=== PATIENT | female | born 1990 | race American Indian/Alaskan Native ===

== ENCOUNTER 2019-04-11 20:09 | Emergency (ER) | payer SELFPAY ==
--- NOTE | 2019-04-11 20:33 | Emergency Department Report ---
Blank Doc - Documentation Documentation: This is a 28-year-old female that presents with n/v and vaginal bleeding. Sta joe has generalized weakness. This initial assessment/diagnostic orders/clinical plan/treatment(s) is/are subject to change based on patient's health status, clinical progression and re- assessment by fellow clinical providers in the ED. Further treatment and workup at subsequent clinical providers discretion. Patient/guardians urged not to elope from the ED as their condition may be serious if not clinically assessed and managed. Initial orders include: 1- Patient sent to [facility] for further evaluation and treatment 2- labs 3- UA
[2019-04-11 21:01] LABS: Basophils % (Auto) 0.2 % (0.0-1.8); Eosinophils # (Auto) 0.4 K/mm3 (0.0-0.4); Eosinophils % (Auto) 2.9 % (0.0-4.3); Hematocrit 26.6 % (30.3-42.9); Hemoglobin 8.4 gm/dl (10.1-14.3); Lymphocytes # (Auto) 2.3 K/mm3 (1.2-5.4); Lymphocytes % (Auto) 15.3 % (13.4-35.0); Mean Corpuscular HGB Conc 32 % (30-34); Mean Corpuscular Volume 75 fl (79-97); Monocytes # (Auto) 0.9 K/mm3 (0.0-0.8); Monocytes % (Auto) 5.9 % (0.0-7.3); Platelet Count 411 K/mm3 (140-440); Red Blood Count 3.54 M/mm3 (3.65-5.03); Red Cell Distribution Width 15.3 % (13.2-15.2)
[2019-04-11 21:16] LABS: Alanine Aminotransferase 7 units/L (7-56); Albumin 3.8 g/dL (3.9-5); BUN/Creatinine Ratio 19; Blood Urea Nitrogen 13 mg/dL (7-17); Hemolysis Index 0
[2019-04-11 21:30] LABS: Bilirubin,Urine NEG (Negative); Blood,Urine LG (Negative); Color,Urine Yellow (Yellow); Mucus,Urine FEW /HPF; Urobilinogen,Urine < 2.0 mg/dL (<2.0)
[2019-04-11 21:31] LABS: RBC,Urine > 182.0 /HPF (0.0-6.0)
[2019-04-12] MEDS ORDERED: FEOSOL PO ONE (01:36)
[2019-04-12] MEDS ORDERED: ZOFRAN IV ONE (01:36)
[2019-04-12] MEDS ORDERED: NACL 0.9% 1000 ML 1,000 ML IV ONE (01:36)
--- NOTE | 2019-04-12 01:45 | Emergency Department Report ---
ED N/V/D HPI - General Chief complaint: Vaginal Bleeding Stated complaint: NAUSEA/FEVER/LOW IRON Time Seen by Provider: 04/11/19 20:31 Source: patient Mode of arrival: Ambulatory Limitations: No Limitations - History of Present Illness Initial comments: Patient is a 28-year-old female presents emergency room with complaints of nausea and vomiting that began a week ago. She has associated generalized weakness and fatigue. She denies any abdominal pain, diarrhea, dysuria. The patient states she had a normal bowel movement yesterday. She states she has a past medical history of anemia and believes her iron is low. She has not been taking an iron supplement she states that she does not have anymore. she does not have a primary care doctor. Patient has a history of heavy menstrual cycles. She states she has been on her cycle since February 28. pt states she has had multiple workups by [employer] [facility] for her AUB without any abnormal results. she states she is supposed to be on control but is not taking it. She states her last blood transfusion was in June 2018. - Related Data Previous Rx's Medication Instructions Recorded Last Taken Type Ferrous Sulfate [Feosol 325 MG tab] 325 mg PO BID #90 tablet 05/13/18 Unknown Rx medroxyPROGESTERone ACETATE 10 mg PO BID #60 tablet 05/13/18 Unknown Rx [Provera] levoFLOXacin [Levaquin TAB] 500 mg PO QDAY #7 tablet 05/14/18 Unknown Rx Fluconazole [Diflucan TAB] 150 mg PO ONCE #1 tablet 08/14/18 Unknown Rx metroNIDAZOLE [Flagyl] 500 mg PO Q12HR #14 tab 08/14/18 Unknown Rx Ferrous Sulfate [Ferrous Sulfate 324 mg PO DAILY #30 tablet. 04/12/19 Unknown Rx 324 MG] Ondansetron [Zofran Odt] 4 mg PO Q8HR PRN #14 tab.rapdis 04/12/19 Unknown Rx medroxyPROGESTERone ACETATE 10 mg PO QDAY #10 tablet 04/12/19 Unknown Rx [Provera] Allergies Allergy/AdvReac Type Severity Reaction Status Date / Time No Known Allergies Allergy Verified 08/14/18 11:45 ED Review of Systems ROS: Stated complaint: NAUSEA/FEVER/LOW IRON Other details as noted in HPI Comment: All other systems reviewed and negative ED Past Medical Hx - Past Medical History Previous Medical History?: Yes Hx Hypertension: No Hx Heart Attack/AMI: No Hx Congestive Heart Failure: No Hx Diabetes: No Hx Deep Vein Thrombosis: No Hx Renal Disease: No Hx Sickle Cell Disease: No Hx Kidney Stones: No Hx Asthma: No Hx COPD: No Hx Tuberculosis: No Hx HIV: No Additional medical history: anemia with transfusion - Surgical History Past Surgical History?: No Hx Coronary Stent: No Hx Pacemaker: No Hx Internal Defibrillator: No - Social History Smoking Status: Never Smoker Substance Use Type: None - Medications Home Medications: Home Medications Medication Instructions Recorded Confirmed Last Taken Type Ferrous Sulfate [Feosol 325 MG tab] 325 mg PO BID #90 tablet 05/13/18 Unknown Rx medroxyPROGESTERone ACETATE 10 mg PO BID #60 tablet 05/13/18 Unknown Rx [Provera] levoFLOXacin [Levaquin TAB] 500 mg PO QDAY #7 tablet 05/14/18 Unknown Rx Fluconazole [Diflucan TAB] 150 mg PO ONCE #1 tablet 08/14/18 Unknown Rx metroNIDAZOLE [Flagyl] 500 mg PO Q12HR #14 tab 08/14/18 Unknown Rx Ferrous Sulfate [Ferrous Sulfate 324 mg PO DAILY #30 tablet.dr 04/12/19 Unknown Rx 324 MG] Ondansetron [Zofran Odt] 4 mg PO Q8HR PRN #14 tab.rapdis 04/12/19 Unknown Rx medroxyPROGESTERone ACETATE 10 mg PO QDAY #10 tablet 04/12/19 Unknown Rx [Provera] ED Physical Exam - General Limitations: No Limitations General appearance: alert, in no apparent distress - Head Head exam: Present: atraumatic, normocephalic - Eye Eye exam: Present: normal appearance - ENT ENT exam: Present: mucous membranes moist - Respiratory Respiratory exam: Present: normal lung sounds bilaterally. Absent: respiratory distress, wheezes, rales, rhonchi, stridor, accessory muscle use, decreased br eath sounds, prolonged expiratory - Cardiovascular Cardiovascular Exam: Present: regular rate, normal rhythm, normal heart sounds. Absent: systolic murmur, diastolic murmur, rubs, gallop - GI/Abdominal GI/Abdominal exam: Present: soft, normal bowel sounds, other (protuberant abdomen ). Absent: distended, tenderness, guarding, rebound, rigid - Back Exam Back exam: Absent: CVA tenderness (R), CVA tenderness (L) - Neurological Exam Neurological exam: Present: alert, oriented X3 - Psychiatric Psychiatric exam: Present: normal affect, normal mood - Skin Skin exam: Present: warm, dry, intact ED Course Vital Signs 04/11/19 04/12/19 20:32 02:57 Temperature 98.3 F 98.4 F Pulse Rate 104 H 91 H Respiratory 18 16 Rate Blood Pressure 154/98 Blood Pressure 122/75 [Right] O2 Sat by Pulse 100 98 Oximetry ED Medical Decision Making - Lab Data Result diagrams: 04/11/19 20:37 04/11/19 20:37 - Medical Decision Making Patient is a 28-year-old female presents emergency room with complaints of nausea and vomiting that began a week ago. She has associated generalized weakness and fatigue. She denies any abdominal pain, diarrhea, dysuria. The patient states she had a normal bowel movement yesterday. She states she has a past medical history of anemia and believes her iron is low. She has not been taking an iron supplement she states that she does not have anymore. she does not have a primary care doctor. Patient has a history of heavy menstrual cycles. She states she has been on her cycle since February 28. pt states she has had multiple workups by [employer] [facility] for her AUB without any abnormal results. she states she is supposed to be on control but is not taking it. She states her last blood transfusion was in June 2018. VSS. no abd tenderness on exam. hemoglobin is 8.4. elevated WBC which she has had on prior lab work. pt had a CT abd pelvis with no acute abnormality during a previous ED visit. pt states that she would just like a pill for nausea and " control." pt given zofran while in the ED and had no episodes of emesis, pt is tolerating PO intake. pt given prescription for provera. advised pt she would need to follow up with an [employer] [facility] in the next 2-3 days for further evaluation and to discuss control options. pt given prescription for ferrous sulfate due to anemia most likely being iron deficient from menstrual loss. advised pt to please take medication as prescribed. Drink plenty of water. Follow up with a primary care doctor and [employer] [facility] in the next 2-3 days. Return to the emergency room for any new or worsening symptoms. Critical care attestation.: If time is entered above; I have spent that time in minutes in the direct care of this critically ill patient, excluding procedure time. ED Disposition Clinical Impression: Nausea and vomiting Qualifiers: Vomiting type: unspecified Vomiting Intractability: non-intractable Qualified Code(s): R11.2 - Nausea with vomiting, unspecified Menorrhagia Qualifiers: Menorrahagia type: with irregular cycle Qualified Code(s): N92.1 - Excessive and frequent menstruation with irregular cycle Anemia Qualifiers: Anemia type: iron deficiency Iron deficiency anemia type: chronic blood loss Qualified Code(s): D50.0 - Iron deficiency anemia secondary to blood loss (chronic) Disposition: TO HOME OR SELFCARE Is pt being admited?: No Does the pt Need Aspirin: No Condition: Stable Instructions: Iron Deficiency Anemia (ED), Acute Nausea and Vomiting (ED), Menorrhagia (ED) Additional Instructions: please take medication as prescribed. Drink plenty of water. Follow up with a primary care doctor and [employer] [facility] in the next 2-3 days. Return to the emergency room for any new or worsening symptoms. Prescriptions: Ferrous Sulfate [Ferrous Sulfate 324 MG] 324 mg PO DAILY #30 tablet. medroxyPROGESTERone ACETATE [Provera] 10 mg PO QDAY #10 tablet Ondansetron [Zofran Odt] 4 mg PO Q8HR PRN #14 tab.rapdis PRN Reason: Nausea And Vomiting Referrals: RENA ZHOU MD [Primary Care Provider] - 2-3 Days [facility] [Outside] - 2-3 Days [facility] [Outside] - 2-3 Days [facility] [Provider Group] - 2-3 Days Time of Disposition: 02:46 Print Language: MEXICAN
[2019-04-12] MEDS ORDERED: ZOFRAN ODT PO ONE (02:45)
[2019-04-12 02:57] VITALS: BP 122/75
== END 2019-04-12 02:58 | disposition home or self-care (01) ==
LOC: ED 20:09
DX: N92.1 Excessive and frequent menstruation with irregular cycle (principal); D50.0 Iron deficiency anemia secondary to blood loss (chronic); R11.2 Nausea with vomiting, unspecified; Z86.2 Personal history of diseases of the blood and blood-forming organs and certain disorders involving the immune mechanism; Z79.899 Other long term (current) drug therapy
CPT/HCPCS: 36415; 80053; 81001; 83690; 84703; 85025; 99283; J7030; J2405; Q0162